=== PATIENT | male | born 1955 | race Caucasian/White ===

== ENCOUNTER 2019-10-11 13:09 | Outpatient (CLI) | payer MEDICARE, BC, SELFPAY ==
--- NOTE | ~2019-10-11 | XR_ITS ---
EXAMINATION: XR lumbar spine 2-3V DATE: 10/11/2019 13:28 INDICATION: Dorsalgia, unspecified TECHNIQUE: Anteroposterior and lateral views of the lumbar spine, and cone-down lateral view of the l umbosacral junction were obtained. COMPARISON: CT from the same date FINDINGS: There is no fracture. There are 2 mm of retrolisthesis of L3 on L4. Mild loss of interverte bral disc space height is present at L2-3 and L3-4. The vertebral body heights are maintained. Small degenerative osteophytes project from the anterior endplates of multiple vertebral bodies. There is m ild facet osteoarthritis of the lower lumbar spine. The bowel gas pattern is normal. A 4 mm calcifica tion is seen in the left pelvis. IMPRESSION: 1. Mild lumbar spondylosis without acute findings. 2. 4 mm calcification of the left pelvis which may reflect one of the left ureteral stones identified on CT. Reviewed, dictated and finalized at location A. IMPRESSION: 1. Mild lumbar spondylosis without acute findings. 2. 4 mm calcification of the left pelvis which may reflect one of the left uret eral stones identified on CT.
== END 2019-10-11 13:10 | disposition home or self-care (01) ==
LOC: CHSLAB 13:14
PROVIDERS: PCP Family Medicine; Visit Provider Family Medicine
DX: M54.9 Dorsalgia, unspecified (principal); R31.9 Hematuria, unspecified
CPT/HCPCS: 72100; 87077; 87086; 87088; 87186

== ENCOUNTER 2019-10-11 21:03 | Emergency (ER) | payer MEDICARE, BC, SELFPAY ==
--- NOTE | ~2019-10-11 | CT_ITS ---
EXAMINATION: CT abdomen pelvis wo con DATE: 10/11/2019 22:28 INDICATION: Left flank pain, nausea and vomiting TECHNIQUE: Computed tomography (CT) of the abdomen and pelvis was performed without intravenous contr ast. The dose-length product (DLP) was 216.93 mGy-cm. Automated exposure control and iterative recons truction technique were employed. COMPARISON: None FINDINGS: The lung bases are clear. The heart size is normal. The liver, spleen, pancreas, gallbladde r, and adrenal glands are normal. The right kidney is unremarkable. There are two stones measuring 4 mm in the left distal ureter which causes moderate left hydroureteronephrosis. Nonobstructing stones of the left kidney lower pole measure up to 4 mm. No pathologically enlarged abdominal or pelvic lymp h nodes are identified. There is no free intraperitoneal gas or evidence of bowel obstruction. The ap pendix is normal. There is mild lumbar spondylosis. A tiny fat-containing umbilical hernia is noted. IMPRESSION: 1. 4 mm stones in the distal left ureter causing moderate left hydroureteronephrosis. Consider KUB fo r treatment planning purposes. Lumbar spine radiographs performed earlier today do not include the ob structing stones. 2. Left nephrolithiasis. Reviewed, dictated and finalized at location A. IMPRESSION: 1. 4 mm stones in the distal left ureter causing moderate left hydroureteroneph rosis. Consider KUB for treatment planning purposes. Lumbar spine radiographs p erformed earlier today do not include the obstructing stones. 2. Left nephrolithiasis.
[2019-10-11 21:24] VITALS: BP 175/92; PULSE 61; RESP 16; TEMP 36.4; O2SAT 97
[2019-10-11] MEDS: ONDANSETRON INJ 4 MG/2 ML VIAL IV PUSH (21:35)
[2019-10-11] MEDS: KETOROLAC 30 MG/ML VIAL (*BKC) (21:35)
--- NOTE | 2019-10-11 22:31 | ED.ABDPAIN ---
HPI - Abdominal Pain General Chief Complaint: Abdominal Pain Stated Complaint: abd pain, throwing up Source: patient Mode of arrival: ambulatory Limitations: no limitations History of Present Illness HPI narrative: patient is a 64-year-old male who presents the emergency department with 1 day history of hematuria. Patient did not have any pain initially this morning however developed pain in his left lower quadrant this evening. He does not have fevers, diarrhea or bowel problems. He does have blood in his urine and feels like he has to urinate frequently although he has low volumes. He has been having emesis this evening as well. MD elicited complaint: abdominal pain Pertinent past history: none Onset (ago): hour(s) Pain Consistency: constant and colicky Location: LLQ Severity: severe Quality: stabbing Radiation: LLQ Exacerbating factors: nothing Relieving factors: nothing Associated symptoms: nausea, vomiting, dysuria and hematuria Related Data Home Medications Medication Instructions Recorded Confirmed rosuvastatin 20 mg tablet 20 mg PO DAILY 06/18/19 10/11/19 Allergies Allergy/AdvReac Type Severity Reaction Status Date / Time No Known Allergies Allergy Verified 10/11/19 11:49 Review of Systems Review of Systems: All systems reviewed & are unremarkable except as noted in HPI and below Constitutional: Constitutional: Denies as per HPI, Denies no additional constitutional complaints, Denies chills, Denies fatigue, Denies fever(s) and Denies weakness Eyes: Eyes: Denies as per HPI, Denies no additional eye complaints, Denies change in vision and Denies photophobia ENT: Denies system reviewed and no additional complaints, except as documented, Denies as per HPI, Denies dysphagia, Denies vertigo, Denies dizziness, Denies epistaxis, Denies nasal congestion and Denies sore throat Cardiovascular: Cardiovascular: Denies as per HPI, Denies no additional cardiovascular complaints, Denies chest pain, Denies rapid heart rate, Denies radiating jaw, neck or arm pain and Denies slow heart rate Respiratory: Respiratory: Denies as per HPI, Denies no additional respiratory complaints, Denies chest congestion, Denies cough, Denies dyspnea and Denies wheezing Gastrointestinal: Gastrointestinal: Reports abdominal pain, Denies bloating, Denies constipation, Denies heartburn, Denies diarrhea, Reports nausea and Reports vomiting Genitourinary: Genitourinary: Reports hematuria, Reports dysuria and Reports urinary frequency Musculoskeletal: Musculoskeletal: Reports no additional musculoskeletal complaints Neurologic: Reports system reviewed and no additional complaints, except as documented, Denies as per HPI, Denies confusion, Denies vertigo, Denies dizziness, Denies syncope, Denies headache(s), Denies focal weakness, Denies numbness and Denies weakness Psychiatric: Psychiatric: Reports no additional psychiatric complaints, Denies as per HPI, Denies anxiety, Denies depression, Denies homicidal ideation and Denies suicidal ideation PMFSH Past Medical History Medical History COPD (chronic obstructive pulmonary disease) Hyperlipidemia Hypertension CODY (obstructive sleep apnea) Surgical History Surgical History Hx of inguinal hernia surgery 2017 Family History Family History Father Acute myocardial infarction Cerebrovascular accident Mother CHF (congestive heart failure) Social History Social History Smoking status: Never smoker Alcohol intake: current Substance use: never Additional living arrangements comments: . 3 Children. Exam Const: General: alert, diaphoretic and ill appearing Nutritional Appearance: thin Orientation/consciousness: patient oriented x3 HENMT: Head:
[2019-10-11 22:39] LABS: Basophils Absolute Auto 0.01 K/mm3 (0.00-0.10); Basophils Percent Auto 0.1 % (0.0-1.0); Eosinophils Absolute Auto 0.01 K/mm3 (0.02-0.50); Eosinophils Percent Auto 0.1 % (1.0-6.0); Hematocrit 46.5 % (40.0-54.0); Hemoglobin 15.5 g/dL (14.0-18.0); Immature Granulocyte Absolute 0.03 K/mm3 (0.00-0.00); Immature Granulocyte Percent A 0.3 % (0.0-0.0); Lymphocytes Absolute Auto 0.68 K/mm3 (1.10-4.50); Lymphocytes Percent Auto 7.4 % (18.0-42.0); Mean Corpuscular HGB Conc 33.3 g/dL (32.0-36.0); Mean Corpuscular Hemoglobin 30.2 pg (27.0-31.0); Mean Corpuscular Volume 90.6 fL (78.0-102.0); Mean Platelet Volume 9.3 fl (8.7-11.0); Monocytes Absolute Auto 0.56 K/mm3 (0.10-0.90); Monocytes Percent Auto 6.1 % (2.0-11.0); Neutrophils Absolute Auto 7.9 K/mm3 (1.7-7.2); Platelet Count Result 165 K/mm3 (150-420); Red Blood Count 5.13 M/mm3 (4.70-6.10); Red Cell Distribution Width 11.9 % (11.6-14.4); White Blood Count 9.2 K/mm3 (4.8-10.8)
[2019-10-11 22:40] LABS: Add Urine Microscopic? YES; Appearance Urine Cloudy (Clear); Bilirubin Urine 1+ (Negative); Blood Urine 3+ (Negative); Color Urine Brown (Yellow); Glucose Urine UA Negative (Negative); Ketones Urine Trace (Negative); Leukocyte Esterase Ur Negative LEU/UL (Negative); Nitrate Urine Negative (Negative); Protein Urine 2+ (Negative); Specific Grav Ur 1.025 (1.010-1.020); pH Urine 5.5 (5.0-8.0)
[2019-10-11 22:47] LABS: Bacteria Urine Trace /hpf; RBC Urine >75 /hpf (0-2); Squamous Epithelial Cell Urine None seen /hpf (Few); WBC Urine 0-3 /hpf (0-3)
[2019-10-11 22:54] LABS: Alanine Aminotransferase 27 U/L (16-63); Albumin Level 4.2 g/dL (3.4-5.0); Alkaline Phosphatase 74 U/L (46-116); Anion Gap 9.9 mmol/L (7-16); Aspartate Amino Transferase 15 U/L (15-37); Bilirubin,Total 0.9 mg/dL (0.00-1.00); Blood Urea Nitrogen 22 mg/dL (7-18); Calcium 9.1 mg/dL (8.5-10.1); Carbon Dioxide 33 mmol/L (21-32); Chloride 102 mmol/L (98-108); Estimated CRCL calculation 63 ml/min; Estimated Glomerular Filt Rate > 60; Glucose 107 mg/dL (70-99); Lipase 108 U/L (73-393); Osmolality Calculated 295 mOsm/kg (285-295); Potassium 3.9 mmol/L (3.5-5.1); Sodium 141 mmol/L (136-145); Total Protein 7.4 g/dL (6.4-8.2)
[2019-10-11] MEDS: SODIUM CHLORIDE 0.9% IV 1,000 ML 999 ML IV CONT (22:58)
[2019-10-11 23:00] VITALS: BP 147/80; PULSE 70; RESP 14; O2SAT 96
[2019-10-11 23:40] VITALS: BP 162/85; PULSE 75; RESP 14; O2SAT 97
[2019-10-11] MEDS: KETOROLAC 10 MG TABLET PO (23:40)
== END 2019-10-11 23:45 | disposition home or self-care (01) ==
PROVIDERS: Emergency Provider Emergency Medicine; PCP Family Medicine
DX: N20.0 Calculus of kidney (principal); J44.9 Chronic obstructive pulmonary disease, unspecified; E78.5 Hyperlipidemia, unspecified; I10 Essential (primary) hypertension
CPT/HCPCS: 36415; 72100; 74176; 80053; 81001; 83690; 85025; 87077; 87086; 87088; 87186; 96361; 96374; 96375; 99283; 99284; A9270; J1885; J2405; J7030

== ENCOUNTER 2019-11-25 08:56 | Outpatient (RCR) | payer MEDICARE, BC, SELFPAY ==
--- NOTE | 2019-11-25 09:49 | PTOPEVAL ---
Thank you for referring Twin Humphrey to [facility].? The patient is scheduled to be seen for therapy? ____x/week for ___ weeks. Please review, sign, date and return this plan of care ALONSO. I agree with and certify that the following plan of care is medically necessary. Referring Physician Date Admitting Provider: Attending Provider: Khalif Davies DO Referring Provider: *PT Outpatient Evaluation Start: 11/25/19 09:06 Freq: Status: Active Protocol: Document 11/25/19 09:06 [facility] (Rec: 11/25/19 09:40 [facility] [id number]) Therapy Assessment Status Assessment Status Assessment Status Evaluation Outpatient Past Medical History Cardiovascular History Hx Hypercholesterolemia Yes Hx Hypertension Yes Gastrointestinal History Hx Hernia Yes: SURGICAL REPAIR Evaluation Information Problem Diagnosis scaitica Onset 09/22/19 Additional Evaluation Detail oswestry = 24% Subjective Information patient he has been having Query Text:As Reported By Patient/ pain in the R hip for about 6 Family months. he report she is able to walk and perform daily activitiesn without issues. however, if he sits or sleeps he has increased pain in the R hip. he reports small bouts of getting up and moving help relieve pain from sleeping and sitting. he reports he sleeps on his sides. he reports he has pain from the R posterior hip/buttock down the back/side of the leg to the knee/lower thigh. Prior Level of Function Comments Additional Prior Level of Function patient reports prior to 6 Comments months ago, no issues with the R hip. he reports a small injury about 8 months ago when he fell into a pile of wood. Pain Assessment Timing of Pain Assessment Timing of Pain Assessment Assessment Pain Scale Pain Scale Used Numeric (1 - 10) Self Report Pain Assessment Right Hip(s) Reported Pain Level 2 Lowest Pain Intensity 0 Greatest Pain Intensity 8 Pain Score Pain Score 2: Self Report Cervical and Lumbar ROM Lumbar ROM Lumbar Flexion Active Mid [place],Ankle Query Text:Hands to: Lumbar Extension (0-40) 20 Query Text:Active in Degrees Lumbar Lateral Flexion Right (0-40) 20 Query Text:Act
== END 2019-12-03 17:01 | disposition home or self-care (01) ==
LOC: CHSPT 08:56
PROVIDERS: PCP Family Medicine; Visit Provider Family Medicine
DX: M54.30 Sciatica, unspecified side (principal)
CPT/HCPCS: 97014; 97110; 97140; 97161; G0283

== ENCOUNTER 2020-01-28 08:38 | Outpatient (CLI) | payer MEDICARE, BC, SELFPAY ==
--- NOTE | 2020-01-28 08:46 | ECG_ITS ---
Measurements Intervals [place] Rate: 57 P: 39 DC: 157 QRS: 57 QRSD: 92 T: 59 QT: 381 QTc: 372 Interpretive Statements SINUS BRADYCARDIA INCOMPLETE RIGHT BUNDLE BRANCH BLOCK BORDERLINE ECG Electronically Signed On 01-28-2020 9:11:42 CDT by Andrew Helms D.O.
[2020-01-28 09:47] LABS: Cholesterol 171 mg/dL (0-200); HDL Direct 69 mg/dL (40-60); LDL Cholesterol Calculated 85 mg/dL (<130); Triglycerides 84 mg/dL (0-150)
== END 2020-01-28 08:39 | disposition home or self-care (01) ==
PROVIDERS: PCP Family Medicine; Visit Provider Internal Medicine Cardiovascular Disease
DX: E78.5 Hyperlipidemia, unspecified (principal); I10 Essential (primary) hypertension
CPT/HCPCS: 36415; 80061; 93005

== ENCOUNTER 2020-09-16 09:50 | Outpatient (CLI) | payer MEDICARE, BC, SELFPAY ==
--- NOTE | ~2020-09-16 | MR_ITS ---
EXAMINATION: MR brain/brain stem wo con EXAM DATE: 09/16/2020 10:47 INDICATION: Left arm hemiparesis 6-8 months. TECHNIQUE: Magnetic resonance imaging (MRI) of the brain/brain stem obtained without contrast. Sagitt al T1, axial diffusion, gradient echo (T2*), T1, T2, FLAIR sequences obtained. There is no prior st udy for comparison. FINDINGS: Minimal microangiopathy. There are no areas of restricted diffusion to suggest acute infarc tion. There is no acute hemorrhage seen on the T2*, a hemosiderin sensitive sequence. No intraparen chymal brain mass. The ventricles are normal in size. There are no extra-axial collections. Flow vo ids are seen in the cerebral arteries on the T2-weighted sequences consistent with their expected pat ency. The orbits are unremarkable. Soft tissue is unremarkable. IMPRESSION: Minimal microangiopathy. Reviewed, dictated and finalized at location A. IMPRESSION: Minimal microangiopathy.
== END 2020-09-16 09:51 | disposition home or self-care (01) ==
LOC: CHSIMG 09:53
PROVIDERS: PCP Family Medicine; Visit Provider Family Medicine
DX: R09.89 Other specified symptoms and signs involving the circulatory and respiratory systems (principal)
CPT/HCPCS: 70551

== ENCOUNTER 2020-12-11 09:17 | Outpatient (CLI) | payer MEDICARE, BC, SELFPAY ==
--- NOTE | ~2020-12-11 | XR_ITS ---
EXAMINATION: XR shoulder LT min 2V EXAM DATE: 12/11/2020 09:42 INDICATION: Pain in posterior shoulder NKI . TECHNIQUE: The following left shoulder projections obtained: frontal projection with internal rotatio n, frontal projection with external rotation, Grashey, and scapular Y view (4+ views). There is no p rior study for comparison. FINDINGS: No evidence of left shoulder rotator cuff calcific tendinosis. There is mild glenohumer al joint, mild acromioclavicular joint primary osteoarthritis. There are no acute fractures or disloc ations identified. There is no subcutaneous gas. The soft tissue is unremarkable. There are no ra diopaque foreign bodies. IMPRESSION: Mild left shoulder osteoarthritis. Reviewed, dictated and finalized at location B.
== END 2020-12-11 09:18 | disposition home or self-care (01) ==
PROVIDERS: PCP Family Medicine; Visit Provider Family Medicine
DX: M25.512 Pain in left shoulder (principal)
CPT/HCPCS: 73030

== ENCOUNTER 2020-12-30 07:14 | Outpatient (CLI) | payer MEDICARE, BC, SELFPAY ==
--- NOTE | ~2020-12-30 | MR_ITS ---
EXAMINATION: MR shoulder LT wo con DATE: 12/30/2020 08:48 INDICATION: Left shoulder pain. TECHNIQUE: Magnetic resonance imaging (MRI) of the left shoulder was performed without intravenous co ntrast. Sequences included axial PD-weighted FS FSE, coronal oblique PD-weighted FS FSE and T2-weight ed FS FSE, and sagittal oblique T2-weighted FS FSE and T1-weighted FSE. COMPARISON: Left shoulder radiographs 12/11/2020 FINDINGS: Coracoacromial arch: The acromion undersurface is curved in morphology (type II). There is severe acromioclavicular joint osteoarthritis including inferiorly directed osteophytes. There is mild subacromial/subdeltoid bursit is. Rotator cuff: There are articular sided and bursal sided partial-thickness tears of supraspinatus and infraspinatus tendons measuring 1.9 cm anterior to posterior by 2.7 cm proximal to distal by at least 60% tendon t hickness. Teres minor tendon is normal. There is mild subscapularis tendinopathy. There is no asymmet mesha fatty atrophy of the rotator cuff muscle bellies. Biceps tendon and glenoid labrum: Biceps tendon is in bicipital groove. There is mild intra-articular biceps tendinopathy. The glenoid labrum is intact. Fluid: There is no glenohumeral joint effusion. Bones/cartilage: There is cartilage surface irregularity of humeral head and glenoid. IMPRESSION: 1. Partial-thickness tears of supraspinatus and infraspinatus tendons. 2. Mild glenohumeral joint chondrosis. 3. Severe acromioclavicular joint osteoarthritis. 4. Mild subacromial/subdeltoid bursitis. 5. Mild intra-articular biceps tendinopathy. Reviewed, dictated and finalized at location A.
== END 2020-12-30 07:15 | disposition home or self-care (01) ==
LOC: CHSIMG 07:16
PROVIDERS: PCP Family Medicine; Visit Provider Family Medicine
DX: M25.512 Pain in left shoulder (principal)
CPT/HCPCS: 73221

== ENCOUNTER 2021-01-22 08:33 | Outpatient (CLI) | payer MEDICARE, SELFPAY ==
[2021-01-22 09:44] LABS: Prostate Specific Antigen 2.2 ng/mL (< OR = 4.0)
== END 2021-01-22 08:34 | disposition home or self-care (01) ==
LOC: CHSLAB 08:36
PROVIDERS: PCP Family Medicine; Visit Provider Family Medicine
DX: Z00.00 Encounter for general adult medical examination without abnormal findings (principal); Z12.5 Encounter for screening for malignant neoplasm of prostate
CPT/HCPCS: 36415; 84153; G0103

== ENCOUNTER 2021-01-29 11:00 | Outpatient (RCR) | payer MEDICARE, BC, SELFPAY ==
--- NOTE | 2021-01-29 12:03 | PTOPEVAL ---
Thank you for referring Twin Humphrey to [facility].? The patient is scheduled to be seen for therapy? ____x/week for ___ weeks. Please review, sign, date and return this plan of care ALONSO. I agree with and certify that the following plan of care is medically necessary. Referring Physician Date Admitting Provider: Attending Provider: Angel Armenta Referring Provider: RichPT Outpatient Evaluation Start: 01/29/21 10:57 Freq: Status: Active Protocol: Document 01/29/21 10:58 [facility] (Rec: 01/29/21 12:03 [facility] [id number]) Therapy Assessment Status Assessment Status Assessment Status Evaluation Outpatient Past Medical History Neurological History Hx Other Neurological Disorders Yes: left side cva vs early Parkinsons; seeking 2nd opinion Cardiovascular History Hx Hypercholesterolemia Yes Hx Hypertension Yes Respiratory History Hx Chronic Obstructive Pulmonary Disease Yes (COPD) Hx Sleep Apnea Yes Gastrointestinal History Hx Hernia Yes: SURGICAL REPAIR Genitourinary History Hx Kidney Stones Yes Musculoskeletal History Hx Musculoskeletal Disorders No Significant History Hematological History Hx Hematological Disorders No Significant History Endocrine History Hx Endocrine Disorders No Significant History HEENT History Hx HEENT Disorders No Significant History Integumentary History Hx Other Skin Disorders Yes: possible bcc Reproductive History Hx Reproductive Disorders No Significant History Psychosocial History Hx Psychiatric Disorders No Significant History Pain History History of Any Previous or Ongoing No Significant History Instance of Pain Anesthesia History Hx Post-Op Nausea/Vomiting Yes Evaluation Information Problem Diagnosis L shoulder Onset 01/16/21 Subjective Information Patient reports that he Query Text:As Reported By Patient/ started to gradually have Family shoulder pain with certain spots. He states he is unable to reach behind his back ( washing his back, tucking in his shirt), lifting/reaching overhead, and reaching forward into the fridge. Patient states that he knows his limits and does not push past them. The patient states that his goal for therapy is to get his motion back. Prior Level of Function Activity Level (Last 3 Months) Occupation
--- NOTE | 2021-02-20 09:45 | PTOPEVAL ---
Thank you for referring Twin Humphrey to [facility].? The patient is scheduled to be seen for therapy? ____x/week for ___ weeks. Please review, sign, date and return this plan of care ALONSO. I agree with and certify that the following plan of care is medically necessary. 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; seeking 2nd opinion Cardiovascular History Hx Hypercholesterolemia Yes Hx Hypertension Yes Respiratory History Hx Chronic Obstructive Pulmonary Disease Yes (COPD) Hx Sleep Apnea Yes Gastrointestinal History Hx Hernia Yes: SURGICAL REPAIR Genitourinary History Hx Kidney Stones Yes Musculoskeletal History Hx Musculoskeletal Disorders No Significant History Hematological History Hx Hematological Disorders No Significant History Endocrine History Hx Endocrine Disorders No Significant History HEENT History Hx HEENT Disorders No Significant History Integumentary History Hx Other Skin Disorders Yes: possible bcc Reproductive History Hx Reproductive Disorders No Significant History Psychosocial History Hx Psychiatric Disorders No Significant History Pain History History of Any Previous or Ongoing No Significant History Instance of Pain Anesthesia History Hx Post-Op Nausea/Vomiting Yes Evaluation Information Problem Diagnosis L shoulder Onset 01/16/21 Subjective Information patient reports he feels Query Text:As Reported By Patient/ alright this date. he reports Family some increased soreness/pain in the L shoulder and R hip from a fall over the weekend. he presents this date with reports of improved shoulder mobility and use. however, he reports reaching behind head and back are still toughest for him. he presents with a new order to evaluate patient for deficits due to parkinsons . he will be setup with a new evaluation for this diagnosis later this week. Pain Assessment [place]
--- NOTE | 2021-03-01 08:52 | PTOPEVAL ---
Thank you for referring Twin Humphrey to [facility].? The patient is scheduled to be seen for therapy? ____x/week for ___ weeks. Please review, sign, date and return this plan of care ALONSO. I agree with and certify that the following plan of care is medically necessary. 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; seeking 2nd opinion Cardiovascular History Hx Hypercholesterolemia Yes Hx Hypertension Yes Respiratory History Hx Chronic Obstructive Pulmonary Disease Yes (COPD) Hx Sleep Apnea Yes Gastrointestinal History Hx Hernia Yes: SURGICAL REPAIR Genitourinary History Hx Kidney Stones Yes Musculoskeletal History Hx Musculoskeletal Disorders No Significant History Hematological History Hx Hematological Disorders No Significant History Endocrine History Hx Endocrine Disorders No Significant History HEENT History Hx HEENT Disorders No Significant History Integumentary History Hx Other Skin Disorders Yes: possible bcc Reproductive History Hx Reproductive Disorders No Significant History Psychosocial History Hx Psychiatric Disorders No Significant History Pain History History of Any Previous or Ongoing No Significant History Instance of Pain Anesthesia History Hx Post-Op Nausea/Vomiting Yes Evaluation Information Problem Diagnosis L shoulder Onset 01/16/21 Additional Evaluation Detail quick dash = 13% functionally declined Subjective Information patient reports he feels Query Text:As Reported By Patient/ Great this date. he reports Family some pain with far reaching behind back with the L shoulder still. however, his strength and mobility are greatly increased. he reports he has not been able to move his arm this far in a long time. Pain Assessment Timing of Pain Assessment Timing of Pain Assessment Assessment Self Report Self Report Pain Level 0 Pain Score Pain Score 0: Self Report Upper Extre
== END 2021-03-01 09:43 | disposition home or self-care (01) ==
LOC: CHSPT 11:00
PROVIDERS: PCP Family Medicine
DX: M75.102 Unspecified rotator cuff tear or rupture of left shoulder, not specified as traumatic (principal)
CPT/HCPCS: 97014; 97110; 97140; 97161; G0283

== ENCOUNTER → 2021-02-12 02:34 | Outpatient (CLI) | payer MEDICARE, BC, SELFPAY ==
[2021-02-12 16:20] LABS: SARS-CoV-2 RNA PCR Negative
== END ==
PROVIDERS: PCP Family Medicine; Visit Provider Surgery
DX: Z01.812 Encounter for preprocedural laboratory examination (principal); Z20.822 Contact with and (suspected) exposure to COVID-19
CPT/HCPCS: C9803; U0003; U0005

== ENCOUNTER 2021-02-15 01:04 | Day surgery (SDC) | payer MEDICARE, BC, SELFPAY ==
[2021-01-29 09:51] VITALS: BMI 25.2
[2021-02-15 09:03] VITALS: BP 160/79; PULSE 63; RESP 12; TEMP 35.8; O2SAT 99
[2021-02-15 09:04] VITALS: BMI 24.5
[2021-02-15] MEDS: LACTATED RINGERS 1,000 ML 150 ML IV CONT (09:16)
--- NOTE | 2021-02-15 09:31 | WPDANESEPPF ---
Anes - Initial Pre Proc Eval Procedure: Operation Date: 02/15/21 09:30 Proposed Procedures p Screening Colonoscopy - Dany Kyle DO Date/Time: 02/15/21 09:31 Surgeon: Dany Kyle DO Pre Op Diagnosis: neoplasm screening Patient Data Age: 65 Gender: M Height: 1.85 m Weight: 84.2 kg Last Vital Signs Temp 35.8 C L 02/15/21 09:03 Pulse 63 02/15/21 09:03 Resp 12 02/15/21 09:03 BP 160/79 H 02/15/21 09:03 Pulse Ox 99 02/15/21 09:03 Allergies Allergy/AdvReac Type Severity Reaction Status Date / Time No Known Allergies Allergy Verified 02/15/21 09:02 Home Medications Medication Instructions Recorded Confirmed Type triamcinolone acetonide 0.1 % 1 applic TOPICAL TID #15 gm 01/12/20 02/15/21 Rx topical cream aspirin 81 mg tablet,delayed 81 mg PO DAILY 07/31/20 02/15/21 History release icosapent ethyl 1 gram capsule 2 g PO BID 90 Days #360 cap 09/25/20 02/15/21 Rx carbidopa 25 mg-levodopa 100 mg 1 tablet PO TID 01/22/21 02/15/21 History tablet lisinopril 30 mg PO DAILY 01/29/21 02/15/21 History Patient hx anesthesia problems: none Family hx anesthesia problems: none Results Review: All pre-operative results and documents have been reviewed as part of the pre-operative evaluation. 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 3 Children. Spiritual care concerns: No Anes - Eval Final PreProcedure Day of Procedure 02/15/21 09:31 Patient weight: normal Heart: regular rate and rhythm Lungs: clear to auscultation and normal air movement Airway: Mallampati scale class II Neurological: alert and oriented Last oral intake: >/= 8 hours ASA classification: III Emergent: no Anesthetic plan: proceed Anesthesia type and monitoring: general GIVS Results Review: All pre-operative results and documents have been reviewed as part of the pre-operative evaluation. Informed Consent: The patient's anesthetic plan and its attendant risks and benefits were discussed with the patient/family/POA. Questions were solicited and answers provided to the satisfaction of the patient/family/POA.
--- NOTE | 2021-02-15 10:11 | PM.IMHP ---
H&P: HPI History of Present Illness Date/Time: 02/15/21 10:11 Chief Complaint: Family history colon cancer Narrative: this is a 65-year-old man who presents for colonoscopy. His last colonoscopy was 15 years ago. In the last few years he found out that his sister had colon cancer. She was diagnosed around the age of 58. He denies any hematochezia or melena. Denies any change in bowel habits. Review of Systems Review of Systems: All systems reviewed & are unremarkable except as noted in HPI and below Constitutional: Constitutional: Denies chills, Denies fever(s), Denies headache(s) and Denies weight loss Eyes: Eyes: Denies change in vision ENT: Denies dizziness, Denies headache(s), Denies neck mass and Denies throat swelling Cardiovascular: Cardiovascular: Denies chest pain, Denies lightheadedness and Denies dyspnea Respiratory: Respiratory: Denies cough, Denies dyspnea and Denies wheezing Gastrointestinal: Gastrointestinal: Denies abdominal pain, Denies change in bowel habits, Denies nausea and Denies vomiting Genitourinary: Genitourinary: Denies hematuria and Denies dysuria Musculoskeletal: Musculoskeletal: Reports as per HPI Integumentary/Breasts: Skin/Breast: Reports as per HPI Neurologic: Denies dizziness and Denies headache(s) Allergic/Immunologic: Allergic/Immunologic: Denies throat swelling and Denies wheezing [facility] Past Medical History Medical History (Updated 02/15/21 @ 10:12 by Dany Kyle DO) Ataxia of left upper extremity COPD (chronic obstructive pulmonary disease) Hyperlipidemia Hypertension Keratoacanthoma CODY (obstructive sleep apnea) Suspected cerebrovascular accident (CVA) Varicose veins of bilateral lower extremities with pain Surgical History Surgical History Hx of inguinal hernia surgery 2017 Family History Family History Father Acute myocardial infarction Cerebrovascular accident Mother CHF (congestive heart failure) Social History Social History Smoking status: Never smoker Alcohol intake: current Alcohol use details: 5-6 beers once or twice per month Substance use: never Substance use type: does not use Living arrangements: alone Additional living arrangements comments: . 3 Children. Spiritual care concerns: No Meds Home Medications and Allergies Home Medications Medication Instructions Recorded Confirmed Type triamcinolone acetonide 0.1 % 1 applic TOPICAL TID #15 gm 01/12/20 02/15/21 Rx topical cream aspirin 81 mg tablet,delayed 81 mg PO DAILY 07/31/20 02/15/21 History release icosapent ethyl 1 gram capsule 2 g PO BID 90 Days #360 cap 09/25/20 02/15/21 Rx carbidopa 25 mg-levodopa 100 mg 1 tablet PO TID 01/22/21 02/15/21 History tablet lisinopril 30 mg PO DAILY 01/29/21 02/15/21 History Allergies Allergy/AdvReac Type Severity Reaction Status Date / Time No Known Allergies Allergy Verified 02/15/21 09:02 Vital Signs Vital Signs - 24 hr 02/15/21 09:03 Temperature 35.8 C L Pulse Rate 63 Respiratory Rate 12 Blood Pressure 160/79 H Pulse Oximetry 99 Exam Const: General: no acute distress and alert Orientation/consciousness: patient oriented x3 HENMT: Head: normocephalic and atraumatic Ears: hearing grossly normal bilaterally General nose exam: Normal nares present Mouth: Yes Normal oral and palatal mucosa present Eyes: Periorbital: periorbital findings normal Sclera: sclerae normal EOM: EOMs intact bilaterally Neck: Neck: normal visual inspection, no lymphadenopathy and trachea midline Chest: Chest palpation & inspection: normal inspection of the chest Resp: Effort & Inspection: normal respiratory effort Auscultation: clear to auscultation bilaterally Cardio: Jugular venous distension: no JVD Rate: regular rate Rhyt
[2021-02-15 10:50] VITALS: BP 143/91; PULSE 83; RESP 21; O2SAT 97
[2021-02-15 11:00] VITALS: BP 144/89; PULSE 76; RESP 19; O2SAT 98
[2021-02-15 11:10] VITALS: BP 150/94; PULSE 74; RESP 16; O2SAT 98
== END 2021-02-15 11:18 | disposition home or self-care (01) ==
PROVIDERS: PCP Family Medicine; Visit Provider Surgery
PROC: 0DJD8ZZ Inspection of Lower Intestinal Tract, Via Natural or Artificial Opening Endoscopic (ICD-10-PCS; CPT 45378; principal; 2021-02-15 09:30)
DX: Z12.11 Encounter for screening for malignant neoplasm of colon (principal); K57.30 Diverticulosis of large intestine without perforation or abscess without bleeding; Z80.0 Family history of malignant neoplasm of digestive organs; I10 Essential (primary) hypertension; E78.5 Hyperlipidemia, unspecified; J44.9 Chronic obstructive pulmonary disease, unspecified; G47.33 Obstructive sleep apnea (adult) (pediatric); Z79.82 Long term (current) use of aspirin
CPT/HCPCS: G0105; J2704; J7120

== ENCOUNTER 2021-02-23 09:55 | Outpatient (RCR) | payer MEDICARE, BC, SELFPAY ==
--- NOTE | 2021-02-23 10:55 | PTOPEVAL ---
Thank you for referring Twin Humphrey to [facility].? The patient is scheduled to be seen for therapy? ____x/week for ___ weeks. Please review, sign, date and return this plan of care ALONSO. I agree with and certify that the following plan of care is medically necessary. 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; seeking 2nd opinion Cardiovascular History Hx Hypercholesterolemia Yes Hx Hypertension Yes Respiratory History Hx Chronic Obstructive Pulmonary Disease Yes (COPD) Hx Sleep Apnea Yes Gastrointestinal History Hx Hernia Yes: SURGICAL REPAIR Genitourinary History Hx Kidney Stones Yes Musculoskeletal History Hx Musculoskeletal Disorders No Significant History Hematological History Hx Hematological Disorders No Significant History Endocrine History Hx Endocrine Disorders No Significant History HEENT History Hx HEENT Disorders No Significant History Integumentary History Hx Other Skin Disorders Yes: possible bcc Reproductive History Hx Reproductive Disorders No Significant History Psychosocial History Hx Psychiatric Disorders No Significant History Pain History History of Any Previous or Ongoing No Significant History Instance of Pain Anesthesia History Hx Post-Op Nausea/Vomiting Yes Evaluation Information Problem Diagnosis parkinsons disease Onset 02/13/21 Subjective Information patient reports he has seen Query Text:As Reported By Patient/ his PCP who thinks he may have Family had a TIA. however, he reports he has just been to a neurologist who believes he has early onset parkinsons. he reports he is awaiting a 3rd opinion to determine exact diagnosis. he reports he has difficulty with performing more fine motor (nuts and bolts) with the L hand. he reports he is R handed. he reports the L shoulder was injured but is
--- NOTE | 2021-02-23 10:56 | PCPTNOTE ---
No Care Plan initiated due to patient being discharged today.
== END 2021-02-23 11:35 | disposition home or self-care (01) ==
LOC: CHSPT 09:55
PROVIDERS: PCP Family Medicine
DX: G20 Parkinson's disease (principal)
CPT/HCPCS: 97110; 97161

== ENCOUNTER 2021-03-01 07:55 | Outpatient (RCR) | payer MEDICARE, BC, SELFPAY ==
--- NOTE | 2021-03-01 12:03 | OTOPEVAL ---
Thank you for referring Twin Humphrey to [facility].? The patient is scheduled to be seen for therapy? ____x/week for ___ weeks. Please review, sign, date and return this plan of care ALONSO. I agree with and certify that the following plan of care is medically necessary. 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; seeking 2nd opinion Cardiovascular History Hx Hypercholesterolemia Yes Hx Hypertension Yes Respiratory History Hx Chronic Obstructive Pulmonary Disease Yes (COPD) Hx Sleep Apnea Yes Gastrointestinal History Hx Hernia Yes: SURGICAL REPAIR Genitourinary History Hx Kidney Stones Yes Musculoskeletal History Hx Musculoskeletal Disorders No Significant History Hematological History Hx Hematological Disorders No Significant History Endocrine History Hx Endocrine Disorders No Significant History HEENT History Hx HEENT Disorders No Significant History Integumentary History Hx Other Skin Disorders Yes: possible bcc Reproductive History Hx Reproductive Disorders No Significant History Psychosocial History Hx Psychiatric Disorders No Significant History Pain History History of Any Previous or Ongoing No Significant History Instance of Pain Anesthesia History Hx Post-Op Nausea/Vomiting Yes Evaluation Information Problem Diagnosis decreased L fine motor coordination Onset 02/23/21 Cause Parkinson's Subjective Information Patient reports that he has Query Text:As Reported By Patient/ noticed that his dexterity in Family his L hand has declined over the last 8- 12 months. Patient also reports that his started to notice him positioning his L UE in a more flexed/guarded position. Patient does not feel his decrease in L coordination has decreased anymore since the initial onset. Patient states that he is able to perform
--- NOTE | 2021-03-19 09:28 | OTOPEVAL ---
Thank you for referring Twin Humphrey to [facility].? The patient is scheduled to be seen for therapy? ____x/week for ___ weeks. Please review, sign, date and return this plan of care ALONSO. I agree with and certify that the following plan of care is medically necessary. 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; seeking 2nd opinion Cardiovascular History Hx Hypercholesterolemia Yes Hx Hypertension Yes Respiratory History Hx Chronic Obstructive Pulmonary Disease Yes (COPD) Hx Sleep Apnea Yes Gastrointestinal History Hx Hernia Yes: SURGICAL REPAIR Genitourinary History Hx Kidney Stones Yes Musculoskeletal History Hx Musculoskeletal Disorders No Significant History Hematological History Hx Hematological Disorders No Significant History Endocrine History Hx Endocrine Disorders No Significant History HEENT History Hx HEENT Disorders No Significant History Integumentary History Hx Other Skin Disorders Yes: possible bcc Reproductive History Hx Reproductive Disorders No Significant History Psychosocial History Hx Psychiatric Disorders No Significant History Pain History History of Any Previous or Ongoing No Significant History Instance of Pain Anesthesia History Hx Post-Op Nausea/Vomiting Yes Evaluation Information Problem Subjective Information Patient arrives to OT and Query Text:As Reported By Patient/ reports that he continues to Family perform home programming. Patient states that he is able to do everything that he needs to and is confident in home programming. Pain Assessment Timing of Pain Assessment Timing of Pain Assessment Assessment Self Report Self Report Pain Level 0 Pain Score Pain Score 0: Self Report 9-Hole Peg Hand Test Hand Left Hand Dominance Right Scoring Time (seconds) 24 Interpretation Within Normal Range Coordination Activity - Upper Extremity Coordination Activity Left Fine Motor Coordination Activity Patient uses L thumb and index Query Text:Activity, Time, Sets, Reps* finger to screw and unscrew
== END 2021-03-19 09:40 | disposition home or self-care (01) ==
LOC: CHSOT 07:55
DX: G20 Parkinson's disease (principal)
CPT/HCPCS: 97165; 97530

== ENCOUNTER 2021-06-11 11:20 | Outpatient (CLI) | payer MEDICARE, SELFPAY ==
[2021-06-11 12:31] LABS: Cholesterol 250 mg/dL (0-200); HDL Direct 58 mg/dL (40-60); LDL Cholesterol Calculated 174 mg/dL (<130); Triglycerides 89 mg/dL (0-150)
== END 2021-06-11 11:21 | disposition home or self-care (01) ==
LOC: CHSLAB 11:22
PROVIDERS: PCP Family Medicine; Visit Provider Family Medicine
DX: E78.5 Hyperlipidemia, unspecified (principal)
CPT/HCPCS: 36415; 80061

== ENCOUNTER 2021-09-21 10:22 | Outpatient (CLI) | payer MEDICARE, SELFPAY ==
[2021-09-21 11:08] LABS: Alanine Aminotransferase 17 U/L (16-63); Albumin Level 3.9 g/dL (3.4-5.0); Alkaline Phosphatase 85 U/L (46-116); Anion Gap 6 mmol/L (8-16); Aspartate Amino Transferase 13 U/L (15-37); Bilirubin,Total 1.4 mg/dL (0.00-1.00); Blood Urea Nitrogen 18 mg/dL (7-18); Calcium 8.9 mg/dL (8.5-10.1); Carbon Dioxide 28 mmol/L (21-32); Chloride 106 mmol/L (98-108); Cholesterol 183 mg/dL (0-200); Estimated Glomerular Filt Rate > 60; Glucose 94 mg/dL (70-99); HDL Direct 59 mg/dL (40-60); LDL Cholesterol Calculated 103 mg/dL (<130); Osmolality Calculated 291 mOsm/kg (285-295); Potassium 4.3 mmol/L (3.5-5.1); Sodium 140 mmol/L (136-145); Triglycerides 104 mg/dL (0-150)
== END 2021-09-21 10:23 | disposition home or self-care (01) ==
LOC: CHSLAB 10:25
PROVIDERS: PCP Family Medicine; Visit Provider Internal Medicine Cardiovascular Disease
DX: E78.5 Hyperlipidemia, unspecified (principal)
CPT/HCPCS: 36415; 80053; 80061

== ENCOUNTER 2022-10-04 08:04 | Outpatient (CLI) | payer MEDICARE, SELFPAY ==
[2022-10-04 09:18] LABS: Cholesterol 201 mg/dL (0-200); HDL Direct 66 mg/dL (40-60); LDL Cholesterol Calculated 117 mg/dL (<130); Triglycerides 92 mg/dL (0-150)
== END 2022-10-04 08:05 | disposition home or self-care (01) ==
LOC: CHSLAB 08:06
PROVIDERS: Internal Medicine Cardiovascular Disease; PCP Family Medicine; Visit Provider Nurse Practitioner Family
DX: E78.5 Hyperlipidemia, unspecified (principal)
CPT/HCPCS: 36415; 80061

== ENCOUNTER 2022-10-30 08:18 | Outpatient (CLI) | payer MEDICARE, SELFPAY ==
[2022-10-30 09:50] LABS: Prostate Specific Antigen 2.6 ng/mL (< OR = 4.0)
== END 2022-10-30 08:19 | disposition home or self-care (01) ==
LOC: CHSLAB 08:21
PROVIDERS: PCP Family Medicine; Visit Provider Urology
DX: R97.20 Elevated prostate specific antigen [PSA] (principal)
CPT/HCPCS: 36415; 84153

== ENCOUNTER 2023-11-19 07:54 | Outpatient (CLI) | payer MEDICARE, BC, SELFPAY ==
[2023-11-19 08:05] LABS: Basophils Absolute Auto 0.02 K/mm3 (0.00-0.10); Basophils Percent Auto 0.5 % (0.0-1.0); Eosinophils Absolute Auto 0.06 K/mm3 (0.02-0.50); Eosinophils Percent Auto 1.5 % (1.0-6.0); Hematocrit 48.6 % (37.0-46.0); Hemoglobin 16.5 g/dL (12.4-15.3); Immature Granulocyte Absolute 0.01 K/mm3 (0.00-0.00); Immature Granulocyte Percent A 0.2 % (0.0-0.0); Lymphocytes Absolute Auto 1.41 K/mm3 (1.10-4.50); Lymphocytes Percent Auto 34.4 % (18.0-42.0); Mean Corpuscular Hemoglobin 30.4 pg (27.0-31.0); Mean Corpuscular Volume 89.7 fL (78.0-102.0); Mean Platelet Volume 9.4 fl (8.7-11.0); Monocytes Absolute Auto 0.41 K/mm3 (0.10-0.90); Neutrophils Absolute Auto 2.19 K/mm3 (1.70-7.20); Neutrophils Percent Auto 53.4 % (50.0-70.0); Platelet Count Result 182 K/mm3 (150-420); Red Blood Count 5.42 M/mm3 (4.70-6.10); Red Cell Distribution Width 11.9 % (11.6-14.4); White Blood Count 4.1 K/mm3 (4.8-10.8)
[2023-11-19 09:05] LABS: Alanine Aminotransferase 21 U/L (16-63); Albumin Level 4.2 g/dL (3.4-5.0); Alkaline Phosphatase 96 U/L (46-116); Aspartate Amino Transferase 12 U/L (15-37); Bilirubin,Total 1.3 mg/dL (0.00-1.00); Blood Urea Nitrogen 16 mg/dL (7-18); Chloride 104 mmol/L (98-108); Cholesterol 191 mg/dL (0-200); Estimated Glomerular Filt Rate > 60; Glucose 88 mg/dL (70-99); HDL Direct 60 mg/dL (40-60); LDL Cholesterol Calculated 112 mg/dL (<130); Magnesium 2.1 mg/dL (1.8-2.4); Osmolality Calculated 298 mOsm/kg (285-295); Potassium 4.3 mmol/L (3.5-5.1); Prostate Specific Antigen 2.7 ng/mL (< OR = 4.0); Sodium 144 mmol/L (136-145); Total Protein 7.2 g/dL (6.4-8.2); Triglycerides 93 mg/dL (0-150); Vitamin B12 323 pg/mL (193-986)
[2023-11-19 09:11] LABS: Thyroid Stimulating Hormone Reflex 1.69 u/IU/mL (0.36-3.74)
[2023-11-19 09:14] LABS: Anion Gap 10 mmol/L (4-12); Carbon Dioxide 30 mmol/L (21-32)
== END 2023-11-19 07:55 | disposition home or self-care (01) ==
LOC: CHSLAB 07:56
PROVIDERS: PCP Family Medicine; Visit Provider Family Medicine
DX: E53.8 Deficiency of other specified B group vitamins (principal); R35.1 Nocturia; R97.20 Elevated prostate specific antigen [PSA]; E78.5 Hyperlipidemia, unspecified; G47.33 Obstructive sleep apnea (adult) (pediatric); R53.83 Other fatigue; E03.9 Hypothyroidism, unspecified; I10 Essential (primary) hypertension; Z12.5 Encounter for screening for malignant neoplasm of prostate
CPT/HCPCS: 36415; 80053; 80061; 82607; 82746; 83735; 84153; 84443; 85025; G0103

== ENCOUNTER 2024-01-14 09:34 | Outpatient (CLI) | payer MEDICARE, BC, SELFPAY ==
--- NOTE | ~2024-01-14 | XR_ITS ---
[id number] Ordering provider: Khalif Davies DO History: . Torticollis, POPPING IN NECK S/P DIVING INTO POOL 38YR AGO . Comparison: None. FINDINGS: VERTEBRAL BODIES: Normal height and alignment. No visible fracture or subluxation. The dens is intact . DISK SPACES: Narrowing of the disc C3-C4, C4-C5, C5-C6. Multilevel facet joint disease. Multilevel un covertebral joint osteoarthritic changes. PARASPINOUS SOFT TISSUES: No prevertebral soft tissue swelling. IMPRESSION: No acute osseous abnormality cervical spine. Multilevel degenerative disc disease. Reviewed, dictated and finalized at location A.
[2024-01-14 10:00] LABS: Add Urine Microscopic? YES; Appearance Urine Clear (Clear); Bilirubin Urine Negative (Negative); Blood Urine 1+ (Negative); Color Urine Light Yellow (Yellow); Glucose Urine UA Negative (Negative); Ketones Urine Negative (Negative); Leukocyte Esterase Ur Negative (Negative); Nitrate Urine Negative (Negative); Protein Urine Negative (Negative); Specific Grav Ur 1.025 (1.010-1.020); Urobilinogen Urine 0.2 mg/dL (0.2-1.0); pH Urine 5.5 (5.0-8.0)
[2024-01-14 10:04] LABS: Bacteria Urine Trace /hpf; Mucus Urine Moderate /lpf; Squamous Epithelial Cell Urine Rare /hpf (Few); WBC Urine None seen /hpf (0-3)
[2024-01-14 10:59] LABS: Prostate Specific Antigen 2.8 ng/mL (< OR = 4.0)
== END 2024-01-14 09:35 | disposition home or self-care (01) ==
PROVIDERS: PCP Family Medicine; Visit Provider Family Medicine
DX: R35.1 Nocturia (principal); R35.0 Frequency of micturition; M43.6 Torticollis; Z12.5 Encounter for screening for malignant neoplasm of prostate; M50.322 Other cervical disc degeneration at C5-C6 level
CPT/HCPCS: 36415; 72040; 81001; 84153; G0103

== ENCOUNTER 2024-05-12 07:56 | Outpatient (CLI) | payer MEDICARE, BC, SELFPAY ==
--- OUTSIDE RECORDS SUMMARY | 2024-05-12 08:02 | XMS_ITS | Encounter Summary ---
Author Organization [facility] Address [address] [place] [address] Phone Care Team Providers Care Test Skein Winder Name Role Phone Khlaif Davies MD Primary Care Provider [phone] Nadeem Rodriguez MD Unavailable [phone] Reason for Visit * Reason Comments Medication Refill Encounter Details Date Type Department Care Team (Late st Contact Info) Description 04/16/2021 [facility] [address] [place] [phone] Nadeem Rodriguez MD [address] [place] [address] Medication Refill Social History Tobacco Use Types Packs/Day Years Used Date Smoking Tobacco: Never Smokeless Tobacco: Never Alcohol Use Standard Drinks/Week Comments Yes 0 (1 standard drink = 0.6 oz pur e alcohol) Sex and Gender Information Value Date Recorded Sex Assigned at Not on file Legal Sex Male 10:18 AM CDT Gender Identity Not on file Sexual Orientation Not on file documented as of this encounter Plan of Treatment Not on file documented as of this encounter Visit Diagnoses Not on filedocumented in this encounter Care Teams Test Skein Winder Relationship Specialty Start Date End Date Khalif Davies MD [address] [place] [address] PCP - General Family Medicine 12/27/20 Nadeem Rodriguez MD [address] [place] [address] Consulting Physician Neurology 02/05/22 documented as of this encounter
--- OUTSIDE RECORDS SUMMARY | 2024-05-12 08:02 | XMS_ITS | Encounter Summary ---
Author Organization [facility] Address [address] [place] [address]. [place], [place] [address] [place] [address] Care Team Providers Care Field Research Assistant Name Role Phone Juan Diego Alston MD, Emerito F MD Primary Care Provider Lito Ventura MD Primary Care Provider [phone] Encounter Details Date Type Department Care Team (Late st Contact Info) Description 02/27/2017 Abstract [facility] [address] [place] [phone] Juan Diego Alston MD Social History Tobacco Use Types Packs/Day Years Used Date Smoking Tobacco: Never Alcohol Use Standard Drinks/Week Comments No 0 (1 standard drink = 0.6 oz pur e alcohol) Sex and Gender Information Value Date Recorded Sex Assigned at Not on file Legal Sex Male 1:42 AM CDT Gender Identity Not on file Sexual Orientation Not on file Occupation Industry Job Start Date Job End Date retired Not on file Not on file Not on file documented as of this encounter Plan of Treatment Not on file documented as of this encounter Procedures Procedure Name Priority Date/Time Associated Diagnosis Comments LIPID PANEL Routine 02/27/2017 documented in this encounter Results * LIPID PANEL (02/27/2017) CHOLESTEROL 157 HDL 58 TRIGLYCERIDES 122 CHOL/HDL RATIO 2.7 LDL (CALCULATED) 75 GPT/ALT 31 02/27/2017 us Doc [facility] Abstract LABORATORY Final Result documented in this encounter Visit Diagnoses Not on filedocumented in this encounter Care Teams Field Research Assistant Relationship Specialty Start Date End Date Mariana Ferrera MD PCP - General SURGERY 02/26/17 07/19/18 Lito Carbajal MD [address] [place] [address] PCP - General FAMILY PRACTICE 07/20/18 Juan Diego Alston MD [employer] [employer] Repairer CARDIOVASCULAR DISEASE 02/24/17 documented as of this encounter
--- OUTSIDE RECORDS SUMMARY | 2024-05-12 08:02 | XMS_ITS | Clinical Summary ---
Author Organization [facility] Address [address] [place] [address] Phone Care Team Providers Care Music Theory Teacher Name Role Phone Khalif Davies MD Primary Care Provider Nadeem Rodriguez MD Unavailable [phone] Allergies Active Allergy Reactions Criticality Noted Date Comments Acetaminophen Other (see Comments) 08/08/2022 contipation Medications aspirin EC 81 MG Tablet Delayed Response Take 81 mg by mouth daily. Active Lisinopril 30 MG Tablet Take 30 mg by mouth daily. Active simvastatin (ZOCOR) 20 MG Tablet Take 20 mg by mouth every evening. Active Multiple Vitamin (MULTIVITAMIN PO) Take by mouth. Active carbidopa-levodopa (SINEMET) 25-100 MG TabletIndications:P arkinson's disease without dyskinesia or fluctuating manifestations (HCC) Take 2 Tablets by mouth 3 times daily. 1/2 hour before eating 270 Tablet 1 4 Active Active Problems Problem Noted Date Diagnosed Date Parkinson's disease 02/05/2022 Family History Medical History Relation Name Comments Heart Attack Father Congestive Heart Failure Mother Relation Name Status Comments Father Mother Social History Tobacco Use Types Packs/Day Years Used Date Smoking Tobacco: Never Smokeless Tobacco: Never Tobacco Cessation:Counseling Given: Not Answered Alcohol Use Standard Drinks/Week Comments Yes 0 (1 standard drink = 0.6 oz pur e alcohol) Sex and Gender Information Value Date Recorded Sex Assigned at Not on file Legal Sex Male 10:18 AM CDT Gender Identity Not on file Sexual Orientation Not on file Last Filed Vital Signs Vital Sign Reading Time Taken Comments Blood Pressure 140/78 02/06/2023 9:53 AM CDT Pulse 74 02/06/2023 9:53 AM CDT Temperature 36.3 ??C (97.3 ??F) 02/06/2023 9:53 AM CD T Respiratory Rate 20 02/06/2023 9:53 AM CDT Oxygen Saturation 96% 02/06/2023 9:53 AM CDT Inhaled Oxygen Concentration - - Weight 89.4 kg (197 lb) 02/06/2023 9:53 AM CDT Height 185.4 cm (6' 1 ) 02/06/2023 9:53 AM CDT Body Mass Index 25.99 02/06/2023 9:53 AM CDT Plan of Treatment Health Maintenance Due Date Last Done Comments Hepatitis C Virus (HCV) Screening 1955 TdaP Immunization 1955 Colonoscopy 07/22/2000 Colorectal Cancer Screening 07/22/2000 Cologuard 07/22/2005 Immunochemical Fecal Occult Blood 07/22/2005 Pneumococcal Immunization (5 0+ years) (1 of 1 - PCV) 07/22/2005 Zoster Immunization (1 of 2) 07/22/2005 PSA Discussion 07/22/2010 Influenza Immunization (#1) 2023 SARS-COV-2 Immunization ( - 2023- season) 2023 Respiratory Syncytial Virus (RSV) Immunization (Adult) (1 - 1-dose 75+ series) 07/22/2030 Hepatitis B Immunization Aged Out No longer eligible based on patient's age to complete this topic Meningococcal Immunization (ACWY) Aged Out No longer eligible based on patient's age to complete this topic Rotavirus Immunization Aged Out No lo nger eligible based on patient's age to complete this topic Insurance MEDICARE [facility] [[email or web address]] Care Teams Music Theory Teacher Relationship Specialty Start Date End Date Khalif Davies MD [address] [place] [address] PCP - General Family Medicine 12/27/20 Nadeem Rodriguez MD [address] [place] [address] Consulting Physician Neurology 02/05/22
--- OUTSIDE RECORDS SUMMARY | 2024-05-12 08:02 | XMS_ITS | Encounter Summary ---
Author Organization [facility] Address [address] [place] [address]. [place], [place] [address] [place] [address] Care Team Providers Care Salad Maker Name Role Phone Juan Diego Alston MD, Emerito F MD Primary Care Provider Lito Ventura MD Primary Care Provider [phone] Encounter Details Date Type Department Care Team (Late st Contact Info) Description 07/15/2018 [facility] [address] [phone] Abstract, Doc [facility] Social History Tobacco Use Types Packs/Day Years [...] on filedocumented in this encounter Care Teams Salad Maker Relationship Specialty Start Date End Date Mariana Ferrera MD PCP - General SURGERY 02/26/17 07/19/18 Lito Carbajal MD [address] [place] [address] PCP - General FAMILY PRACTICE 07/20/18 Juan Diego Alston MD [place] Building Inspection Engineer CARDIOVASCULAR DISEASE 02/24/17 documented as of this encounter
--- OUTSIDE RECORDS SUMMARY | 2024-05-12 08:02 | XMS_ITS | Clinical Summary ---
Author Organization [facility] Address [address] [place] [address]. [place], [place] [address] [place] [address] Care Team Providers Care Video Operator Name Role Phone Juan Diego Alston MD, Joshua D MD Primary Care Provider [phone] Allergies No known active allergies Medications rosuvastatin (CRESTOR) 20 MG tablet Take 1 tablet by mouth daily. 07/17/2015 Active lisinopril 30 MG tablet Take 1 tablet by mouth daily. 08/25/2015 Active multivitamin tablet Take 1 tablet by mouth daily. 07/17/2015 Active Active Problems Problem Noted Date Diagnosed Date HTN (hypertension) HLD (hyperlipidemia) COPD (chronic obstructive pu lmonary disease) ([facility]) Sleep apnea Family History Medical History Relation Comments [place] Father Relation Status Comments Father Alive Social History Tobacco Use Types Packs/Day Years [...] file Not on file Not on file Last Filed Vital Signs Vital Sign Reading Time Taken Comments Blood Pressure 128/76 07/17/2018 2:01 PM CDT Pulse 64 07/17/2018 2:01 PM CDT Temperature - - Respiratory Rate 16 07/17/2018 2:01 PM CDT Oxygen Saturation 97% 07/17/2018 2:01 PM CDT Inhaled Oxygen Concentration - - Weight 90.7 kg (200 lb) 07/17/2018 2:01 PM CDT Height 182.9 cm (6') 07/17/2018 2:01 PM CDT Body Mass Index 27.12 07/17/2018 2:01 PM CDT Plan of Treatment Health Maintenance Due Date Last Done Comments Colorectal Cancer Screening Colonoscopy (10 Years) 1955 Pneumococcal Vaccine: 65+ Ye ars (1 of 2 - PCV) 07/22/1961 1955 Hepatitis C 07/22/1973 DTaP, Tdap and Td Vaccines ( 1 - Tdap) 07/22/1974 Zoster Vaccines (1 of 2) 07/22/2005 RSV Immunization or 60+ Years (1 - Risk 60-74 years 1-dose series) 2015 COVID-19 Vaccine (2023-2 5 season) 2023 Influenza Adult (#1) 2024 1955 Meningococcal B Vaccine Aged Out No l onger eligible based on patient's age to complete this topic Meningococcal Vaccine Aged Out No tc courtney eligible based on patient's age to complete this topic RSV Immunizations Under 20 Months Aged Out No longer eligible based on patient's age to complete this topic Insurance [facility] Care Teams Video Operator Relationship Specialty Start Date End Date Lito Carbajal MD [address] [place] [address] PCP - General FAMILY PRACTICE 07/20/18 Juan Diego Alston MD [employer] Worker CARDIOVASCULAR DISEASE 02/24/17
--- OUTSIDE RECORDS SUMMARY | 2024-05-12 08:02 | XMS_ITS | CONTINUITY OF CARE DOCUMENT ---
Author Name alan phillips Address Unknown Organization [facility] Address [address] [place] [address] Phone [phone] Care Team Providers Care Ampoule Filler Name Role Phone James Arauz MD Unavailable [phone] LYNN SHEN MD Unavailable LYNN SHEN MD Unavailable PROBLEMS Condition Status Date Provider Notes HYPERTENSION active James Arauz MD HYPERLIPIDEMIA active James Arauz MD ?Diabetes mellitus completed - Finesse Arauz MD ENCOUNTERS Date Type Provider Location Encounter Diag nosis - In-person encounter Office Visit [facility] ?Diabetes mellitus - In-person encounter Office Visit [facility] - In-person encounter Office Visit James Arauz MD [place] [facility] HYPERTENSIONHYPERLIPIDEMIA VITAL SIGNS Date Observation Value Provider blood pressure, diastolic 82 mm[Hg] Us milagros Arauz MD blood pressure, systolic 132 mm[Hg] Sathya Arauz MD pulse rate 62 /min James Arauz MD oxygen saturation, oximetry 98 % James Arauz MD respiratory rate E&M 16 /min James ritchie MD Body Mass Index (Ratio) 26.85 kg/m2 Finesse Arauz MD weight E&M 198 [lb_av] James Arauz MD Body Mass Index (Ratio) 27.80 kg/m2 Finesse Arauz MD blood pressure, diastolic 70 mm[Hg] Us milagros Arauz MD blood pressure, systolic 124 mm[Hg] Sathya Arauz MD pulse rate 66 /min James Arauz MD oxygen saturation, oximetry 97 % James Arauz MD respiratory rate E&M 16 /min James ritchie MD weight E&M 205 [lb_av] James Arauz MD blood pressure, diastolic, left arm 78 mm [Hg] James Arauz MD blood pressure, systolic, left arm 120 mm [Hg] James Aaruz MD blood pressure, diastolic, right arm 74 m m[Hg] James Arauz MD blood pressure, systolic, right arm 124 m m[Hg] James Arauz MD respiratory rate E&M 16 /min James ritchie MD oxygen saturation, oximetry 96 % James Arauz MD weight E&M 209 [lb_av] James Arauz MD height E&M 72 [in_i] James Arauz MD ALLERGIES No Known Drug Allergies RESULTS Date Observation Value Provider Reference Range Interpretation Location LDL/HDL ratio, serum 1.5 [facility] cholesterol/HDL ratio, serum 3.8 [facility] triglyceride, serum, fasting 298 mg/dL [facility] HDL cholesterol, serum 46 mg/dL [facility] LDL cholesterol, serum 69 mg/dL [facility] cholesterol, serum 175 mg/dL [facility] alanine aminotransferase (SGPT), serum 39 1/L [facility] aspartate aminotransferase (SGOT), serum 19 1/L [facility] creatinine, serum 1.06 mg/dL [facility] potassium, serum 4.2 mmol/L [facility] sodium, serum 138 mmol/L [facility] HISTORY OF MEDICATION USE Medication Status Instructions Dates Provider Indications Com ments DAILY VALUE MULTIVITAMIN ORAL TABLET active James Arauz MD LISINOPRIL 20 MG ORAL TABLET active qd James Arauz MD CRESTOR 20 MG ORAL TABLET active qd James Arauz MD SOCIAL HISTORY Date Observation Value Provider drug use none James Arauz MD smoking status Never smoker James Arauz MD social history reviewed E&M reviewed - no changes required James Arauz MD social history reviewed E&M reviewed - no changes required James Arauz MD social history E&M Ethnicity: Ca ucasian J ob Status: Retired Rosa berkowitz has never smoked. Smoking History: Rosa berkowitz has never smoked. James Arauz MD smoking status Never smoker James Arauz MD drug use none James Arauz MD smoking status never smoker James Arauz MD social history E&M E thnicity: J ob Status: Retired James Arauz MD social history reviewed E&M reviewed James Arauz MD MENTAL STATUS Date Observation Value Provider assessment of judgme nt and insight E&M Alert and oriented to time, place and person. Mood and affect are normal. James Arauz MD FAMILY HISTORY Family Member Condition First Degree Blood Relative No Known Fam ade History INSURANCE PROVIDERS Payer name Policy type / Coverage type [place] [employer] ID [facility] [id number] TREATMENT PLAN Date Name Performer Cardiology: B P today: 132/82 P rior BP: 124/70 (08/08/2014) James Arauz MD Follow-up faxed 0826: H is updated medication list for this problem includes: Crestor 20 Mg Tabs (Rosuvastatin calcium) ..... Qd Orders: C OMPREHENSIVE METABOLIC PANEL W/EGFR ([id number]) James Arauz MD Follow-up faxed 0826:BP 124/70 His updated medication list for this problem includes: Lisinopril 20 Mg Tabs (Lisinopril) ..... Qd Orders: C OMPREHENSIVE METABOLIC PANEL W/EGFR ([id number]) James Arauz MD Date Name LIPID PANEL COMPREHENSIVE METABO LIC PANEL W/EGFR HEMOGLOBIN A1c LIPID PANEL COMPREHENSIVE METABO LIC PANEL W/EGFR Complete Echo HISTORY OF PROCEDURES Procedure Date Procedure Name Provider Procedure Notes S tatus SNOMED-CT: 532797735 [id number] Current Medications Documented James Arauz MD completed SNOMED-CT: 29053143 Physical Exam, Performed: Pulse Exam of Foot James Arauz MD completed
--- OUTSIDE RECORDS SUMMARY | 2024-05-12 08:02 | XMS_ITS | Encounter Summary ---
Author Organization [facility] Address [address] [place] [address] Phone Care Team Providers Care Registered Nurse Maternal Child Name Role Phone Khalif Davies MD Primary Care Provider [phone] Nadeem Rodriguez MD Unavailable [phone] Reason for Visit * Reason Comments Medication Refill Encounter Details Date Type Department Care Team (Late st Contact Info) Description 08/23/2023 [facility]ill [facility] [address] [place] [id number] Nadeem Rodriguez MD [address] [place] [address] Medication Refill Social History Tobacco [...] on file documented as of this encounter Miscellaneous Notes * Telephone Encounter - Patito Downey RN - 08/25/2023 8:18 AM CDT Medication(s) refilled and signed per [facility] Chronic Medication Refill Standing Order for Pediatricand Adult Patients. Requested Prescriptions Pending Prescriptions Disp Refills carbidopa-levodopa (SINEMET) 25-100 MG Tablet [Pharmacy Med Name: CARBIDOPA- LEVODOPA 25-100 TAB] 180 Tablet 2 Sig: TAKE 2 TABLETS BY MOUTH 3 TIMES DAILY. 1/2 HOUR BEFORE EATING Antiparkinson Dopaminergics and COMT Protocol Passed - 08/23/2023 12:57 AM Passed - Visit with relevant provider in the past 9 months or upcoming 90 days Recent Visits Date Type Provider Dept 02/06/23 Office Visit Nadeem Rodriguez MD [facility] Neurology [facility] Showing recent visits within past 270 days and meeting all other requirements Future Appointments No visits were found meeting these conditions. Showing future appointments within next 90 days and meeting all other requirements Passed - Blood pressure on record in past 12 months Clinician-entered: BP Readings from Last 3 Encounters: 02/06/23 140/78 08/08/22 130/70 02/05/22 140/78 Patient-entered: No data recorded documented in this encounter Plan of Treatment Not on file documented as of this encounter Visit Diagnoses Diagnosis Parkinson's disease without dyskinesia or fluctuating manifestations (HCC) documented in this encounter Care Teams Registered Nurse Maternal Child Relationship Specialty Start Date End Date Khalif Davies MD [address] [place] [id number] PCP - General Family Medicine 12/27/20 Nadeem Rodriguez MD [address] [place] [address] Consulting Physician Neurology 02/05/22 documented as of this encounter
[2024-05-27 14:58] VITALS: BMI 25.6
--- NOTE | 2024-05-27 14:58 | P.SLEEP_ITS ---
Sleep Study - Home Unattended Date of Study: 05/12/24 Ordering Provider: ASHUTOSH Arias Interpreting Provider: Pat Tabor DO Home Sleep Study Type: Watch PAT Height: 1.85 m Weight: 87.997 kg Body Mass Index: 25.6 Neck Circumference (inches): 16.25 [place]: 8 Reason for Sleep Study snoring, daytime hypersomnia Sleep History The patient is a 68-year-old male that had a sleep study ordered by the [facility] for evaluation of sleep apnea. The patient admits to excessive daytime sleepiness, loud snoring and difficulty maintaining sleep. The patient does choke or gasp at night. He does have difficulty breathing on his back. He denies morning headaches. He denies having a dry or sore mouth / throat in the morning. He denies nocturnal heartburn. He denies nocturia. He denies having difficulty falling asleep. He does have difficulty returning to sleep if he wakes up throughout the night. He does use hypnotics or sedatives. He denies feeling anxious about sleep. He does feel tired or sleepy during the day. He does feel tired in the morning. He does have the urge to fall asleep during the day. He denies feeling drowsy while driving. He denies sleep paralysis, cataplexy and hypnagogic/ hypnopompic hallucinations. He denies clenching or grinding his teeth. He denies having a restless feeling in his legs. He goes to bed at 9:00 p.m. every night. It takes him 15 minutes to fall asleep. He gets 5-1/2 hours of sleep on work days and 6-1/2 hours of sleep on his days off. His sleep is somewhat restorative on his days off. He does take it planned naps in the afternoon that is less than 1 hour. The nap is restorative. He denies dream enactment behavior. He denies sleep walking. He consumes 1-2 caffeinated beverages per day. He denies tobacco and alcohol us e. He exercises 1-2 nights per week. [facility] Past Medical History Medical History Varicose veins of bilateral lower extremities with pain Kerato[place] CODY (obstructive sleep apnea) COPD (chronic obstructive pulmonary disease) Hyperlipidemia Hypertension Surgical History Surgical History Hx of inguinal hernia surgery 2017 Family History Family History Father Acute myocardial infarction Cerebrovascular accident Mother CHF (congestive heart failure) Social History Social History Smoking status: Never smoker Alcohol intake: former Substance use: never Substance use type: does not use Do You Feel Safe in your Home?: Yes Lack of Transportation: No Lack of Food: Never True Current Housing: I Have Housing Concerned About Future Housing: No Difficulty Paying Gas/Electric Bills: No Difficulty Paying for Meds: No Currently Unemployed: No Education: High School Diploma/GED Difficulty w/ Childcare or Family Care: No Living arrangements: other Additional living arrangements comments: . Lives with . Has 3 Children. Occupation/Education: retired Gender identity (if verbalized by the patient): Male Spiritual care concerns: No Medications Home Medications ?Medication ?Instructions ?Recorded ?Confirmed ?Type aspirin 81 mg tablet,delayed 81 mg PO .every other day 01/06/23 04/23/24 History release simvastatin 20 mg tablet See Rx Instructions .Route 07/28/23 04/23/24 Rx .COMPLEX #30 tabs carbidopa 25 mg-levodopa 100 mg 2 tablet PO TID 11/18/23 04/23/24 History tablet tobramycin 0.3 %-dexamethasone 1 drp EACH EYE Q4H #5 mL 11/18/23 04/23/24 Rx 0.05 % eye drops,suspension finasteride 5 mg tablet 5 mg PO DAILY #90 tabs 01/14/24 04/23/24 Rx tamsulosin 0.4 mg capsule (Flomax) 0.4 mg PO DAILY #90 caps 01/14/24 04/23/24 Rx albuterol sulfate 90 mcg/actuation 1 - 2 inh inhalation Q4-6H PRN 04/23/24 04/23/24 Rx breath activated powder inhaler shortness of breath or wheezing #1 (ProAir RespiClick) ea lisinopril 30 mg tablet See Rx Instructions .Route 05/19/24 Rx .COMPLEX #90 tabs Sleep Procedure The sleep study was completed using flatevPAT a technically adequate device with seven channels: peripheral arterial tone, actigraphy, body position, snore, respiratory movement, pulse oximetry, sleep staging, and heart rate. Prior to using the device, the patient received verbal and written instructions for its application and was provided with the help desk phone number for additional tele phonic instruction with 24-hour availability of qualified personnel to answer questions. The study was scored using CMS guidelines. Sleep Architecture The total recording time is 8 hrs, 28 min. The total sleep time is 8 hrs, 0 min. Sleep latency is 15 minutes. REM latency is 55 minutes. The patient had 2 episodes of waking. Sleep architecture shows 12.3% deep sleep, 59.0% light sleep, and (as % Total Sleep Time) showed NREM (Light 59.0%; Deep 12.3%), and a 28.7% stage REM. The patient spent 73.6% of total sleep time in the supine position. Sleep efficiency was 94.49. Respiratory Analysis The overall AHI (pAHI 4%:) is 6.7. The central AHI is 1.8. The AHI was 7.8 in NREM and 4.0 in REM sleep. The AHI was 8.1 in Supine and 7.1 in Non-supine sleep. Percent of [place] respirations is 0.0. Oximetry Data The oxygen desaturation index (SIRI 4%:) is 6.5. The mean saturation is 93%, and the lowest saturation is 83%. Time spent with saturation < 88% is 1.6 minutes. Snoring Profile Snoring average intensity is 40 dB. The patient snored above 45 decibels for 14.0 minutes, 2.9% of sleep time. Cardiac Profile The average pulse rate is 57 beats per minutes. The lowest pulse rate is 48 bpm. The highest pulse rate reported is 85 bpm. Atrial fibrillation was not detected. Premature beats occur <0.1 per minute. Assessment and Plan Assessment and Plan (1) CODY (obstructive sleep apnea): Code(s): G47.33 - Obstructive sleep apnea (adult) (pediatric) Status: Chronic Assessment and Plan: The patient had an overall AHI of 6.7 with desaturation down to 83%. This is consistent with mild sleep apnea. Due to the patient's hypertension, he qualifies for treatment. I recommend that the patient be prescribed AutoPAP 5-15 cm H2O, CPAP mask/filters/tubing and heated humidity. A mandibular advancement device is also an acceptable treatment option. This should be used with all episodes of sleep.? Compliance should be reviewed within 31-90 days of starting therapy for usage greater than 4 hours per night greater than 70% of the nights. The patient should be asked about symptoms such as?excessive daytime sleepiness, quality of sleep, decreased nocturia, increased?mental functioning such as memory, mood, and concentration. Data The data obtained during this sleep study is adequate for interpretation. Certification This sleep study has been reviewed by a board certified sleep medicine physician.
== END 2024-05-13 09:29 | disposition home or self-care (01) ==
LOC: ANHCSM 07:57
PROVIDERS: PCP Family Medicine; Visit Provider Physician Assistant
DX: G47.33 Obstructive sleep apnea (adult) (pediatric) (principal); I10 Essential (primary) hypertension
CPT/HCPCS: 95800

== ENCOUNTER 2024-06-11 10:42 | Emergency (ER) | payer MEDICARE, BC, SELFPAY ==
[2024-06-11 10:45] VITALS: BP 153/76; PULSE 77; RESP 20; TEMP 36.9; O2SAT 99
--- NOTE | 2024-06-11 10:51 | ED.ABDPAIN ---
HPI - Abdominal Pain General Chief Complaint: Urogenital-Male Stated Complaint: right groin pain Source: patient Mode of arrival: ambulatory Limitations: no limitations History of Present Illness HPI narrative: Patient is a 68-year-old male with known history of prior kidney stones here with right groin pain for the past day. He is having some urinary urgency as well. No blood. MD elicited complaint: other ( Right groin pain) Pertinent past history: kidney stones Onset (ago): day(s) ( 1) Pain Consistency: constant Location: groin ( right) Severity: moderate Pain scale (0-10): 5 Quality: cramping and sharp Radiation: other ( genitalia) Migration to: no migration Exacerbating factors: nothing Relieving factors: nothing Context: confirms other ( patient has worsening right groin pain over the past day and history of kidney stones) Associated symptoms: denies other symptoms Related Data Home Medications ?Medication ?Instructions ?Recorded ?Confirmed ?Last Taken ?Type aspirin 81 mg tablet,delayed 81 mg PO .every other day 01/06/23 04/23/24 Unknown History release carbidopa 25 mg-levodopa 100 mg 2 tablet PO TID 11/18/23 04/23/24 Unknown History tablet Allergies Allergy/AdvReac Type Severity Reaction Status Date / Time No Known Allergies Allergy Verified 06/11/24 11:58 Review of Systems Review of Systems: All systems reviewed & are unremarkable except as noted in HPI and below Constitutional: Constitutional: Reports no additional constitutional complaints Eyes: Eyes: Reports no additional eye complaints ENT: Reports system reviewed and no additional complaints, except as documented Cardiovascular: Cardiovascular: Reports no additional cardiovascular complaints Respiratory: Respiratory: Reports no additional respiratory complaints Gastrointestinal: Gastrointestinal: Reports no additional gastrointestinal complaints Genitourinary: Genitourinary: Reports no additional male genitourinary complaints Musculoskeletal: Musculoskeletal: Reports no additional musculoskeletal complaints Integumentary/Breasts: Skin/Breast: Reports system reviewed and no additional complaints, except as docu Neurologic: Reports system reviewed and no additional complaints, except as documented Psychiatric: Psychiatric: Reports no additional psychiatric complaints Endocrine: Endocrine: Reports no additional endocrine complaints Hematologic/Lymphatic: Hematologic/Lymphatic: Reports no additional hematologic/lymphatic complaints Allergic/Immunologic: Allergic/Immunologic: Reports no additional allergic/immunologic complaints PMFSH Past Medical History Medical History Varicose veins of bilateral lower extremities with pain [place] CODY (obstructive sleep apnea) COPD (chronic obstructive pulmonary disease) Hyperlipidemia Hypertension Surgical History Surgical History Hx of inguinal hernia surgery 2017 Family History Family History Father Acute myocardial infarction Cerebrovascular accident Mother CHF (congestive heart failure) Social History Social History Smoking status: Never smoker Alcohol intake: former Substance use: never Substance use type: does not use Do You Feel Safe in your Home?: Yes Lack of Transportation: No Lack of Food: Never True Current Housing: I Have Housing Concerned About Future Housing: No Difficulty Paying Gas/Electric Bills: No Difficulty Paying for Meds: No Currently Unemployed: No Education: High School Diploma/GED Difficulty w/ Childcare or Family Care: No Living arrangements: other Additional living arrangements comments: . Lives with . Has 3 Children. Occupation/Education: retired Gender identity (if verbalized by the patient): Male Spiritual care concerns: No Exam Const: General: healthy appearing Nutritional Appearance: well nourished Orientation/consciousness: patient oriented x3 Limitations: no limitations HENMT: Head: normal to inspection Ears: external ears normal Face/Nose/Sinus: Normal external nose present Eyes: Conjunctivae: conjunctivae normal Pupils: Equal, round and reactive pupils present EOM: EOMs intact bilaterally Neck: Neck: normal visual inspection Chest: Chest palpation & inspection: normal inspection of the chest Resp: Effort & Inspection: normal respiratory effort and not labored Auscultation: clear to auscultation bilaterally and no crackles Cardio: Rate: regular rate Rhythm: regular rhythm Heart sounds: no murmurs GI: Inspection: non-distended GI Palp: Yes Soft to palpation and No Tenderness to palpation present (GI) Auscultation: normal bowel sounds : General: Yes bladder normal to palpation Back/Spine/Pelvis: Back: no CVA tenderness Skin: General skin exam: normal color Rashes: no rashes Wounds: no wounds Neuro: General: patient oriented x3 Cranial nerves: Yes Nystagmus not present Speech: normal speech Extrem: General: normal to inspection Psych: Mental Status: mental status grossly normal Affect: normal affect Attitude: cooperative Course Vital Signs Vital signs: Vital Signs Temperature 36.9 C 06/11/24 10:45 Pulse Rate 77 06/11/24 10:45 Respiratory Rate 20 06/11/24 10:45 Blood Pressure 153/76 H 06/11/24 10:45 Pulse Oximetry 99 06/11/24 10:45 Oxygen Delivery Room Air 06/11/24 10:45 Temperature 36.9 C 06/11/24 10:45 Pulse Rate 70 06/11/24 11:48 Respiratory Rate 20 06/11/24 11:48 Blood Pressure 163/91 H 06/11/24 11:48 Pulse Oximetry 97 06/11/24 11:48 Oxygen Delivery Room Air 06/11/24 11:48 MDM - Abdominal Pain MDM Narrative Medical decision making narrative: patient is a 68-year-old male with right groin pain for the past day. He has a history of kidney stones. We will do an abdominal pain workup with specifics to kidney stones. Lab Data Attestation: I reviewed the patient's lab results. 06/11/24 11:14 06/11/24 11:14 Labs: Lab Results 06/11/24 06/11/24 Range/Units 10:50 11:14 WBC 5.2 (4.8-10.8) K/mm3 RBC 5.48 (4.70-6.10) M/mm3 Hgb 16.8 H (12.4-15.3) g/dL Hct 49.3 H (37.0-46.0) % MCV 90.0 (78.0-102.0) fL MCH 30.7 (27.0-31.0) pg MCHC 34.1 (32-36) g/dL RDW 11.9 (11.6-14.4) % Plt Count 201 (150-420) K/mm3 MPV 9.9 (8.7-11.0) fl Immature Gran % (Auto) 0.2 H (0.0-0.0) % Neut % (Auto) 63.1 (50.0-70.0) % Lymph % (Auto) 27.0 (18.0-42.0) % [place] % (Auto) 8.3 (2.0-11.0) % Eos % (Auto) 1.0 (1.0-6.0) % Baso % (Auto) 0.4 (0.0-1.0) % Lymph # (Auto) 1.40 (1.10-4.50) K/mm3 [place] # (Auto) 0.43 (0.10-0.90) K/mm3 Eos # (Auto) 0.05 (0.02-0.50) K/mm3 Baso # (Auto) 0.02 (0.00-0.10) K/mm3 Abs Immat Gran (auto) 0.01 H (0.00-0.00) K/mm3 Absolute Neuts (auto) 3.27 (1.70-7.20) K/mm3 Absolute Nucleated RBC 0.00 (0.00-0.00) K/mm3 Nucleated RBC % 0.0 (0-0.0) % Sodium 138 (136-145) mmol/L Potassium 4.3 (3.5-5.1) mmol/L Chloride 100 (98-108) mmol/L Carbon Dioxide 27 (21-32) mmol/L Anion Gap 11 (4-12) mmol/L BUN 16 (7-18) mg/dL Creatinine 0.99 (0.70-1.30) mg/dL Estim Creat Clear Calc 71 ml/min Estimated GFR > 60 (59 - ) Glucose 103 H (70-99) mg/dL Calculated Osmolality 287 (285-295) mOsm/kg Calcium 9.2 (8.5-10.1) mg/dL Total Bilirubin 1.5 H (0.00-1.00) mg/dL AST 10 L (15-37) U/L ALT 12 L (16-63) U/L Alkaline Phosphatase 97 (46-116) U/L Total Protein 7.7 (6.4-8.2) g/dL Albumin 4.4 (3.4-5.0) g/dL Urine Color Light yellow (Yellow) Urine Appearance Clear (Clear) Urine pH 6.0 (5.0-8.0) Ur Specific [place] <= 1.005 L (1.010-1.020) Urine Protein Negative (Negative) Urine Glucose (UA) Negative (Negative) Urine Ketones Negative (Negative) Ur Blood (Man) 3+ H (Negative) Urine Nitrate Negative (Negative) Urine Bilirubin Negative (Negative) Urine Urobilinogen 0.2 (0.2-1.0) mg/dL Leukocyte Esterase Rfl Negative (Negative) KATIE/UL Urine RBC 3-5 H (0-2) /hpf Urine WBC None seen (0-3) /hpf Ur Squamous Epith Cells Rare (Few) /hpf Urine Bacteria None seen (None) /hpf Imaging Data Attestation: I personally reviewed and interpreted this imaging study as follows: Radiologist's impression: ITS Impressions Abdomen/Pelvis CT 06/11/24 11:15 IMPRESSION: 1. Bilateral nephrolithiasis with a partially obstructing 3 mm distal right ureteral stone with mild right hydronephrosis. CT scan of the abdomen and pelvis plain shows IMPRESSION: 1. Bilateral nephrolithiasis with a partially obstructing 3 mm distal right ureteral stone with mild right hydronephrosis. Discharge Plan Discharge Clinical Impression: Right distal ureteral calculus Patient Disposition: Home, Self-Care Condition: Stable Instructions: Ureteral Stones (ED) Additional Instructions: please follow-up with the primary doctor in the next week. Please follow-up with urology in the next week. Strain urine. Come back to the ER for worsening pain. Patient Language: [place] Prescriptions: New methylprednisolone [Medrol] 4 mg tablet 4 mg PO BID 3 Days Qty: 6 0RF hydrocodone-acetaminophen 5-325 mg tablet 1 tablet PO Q8H PRN (Reason: pain) Qty: 20 0RF Rx Instructions: 1-2 tabs per dose No Action ProAir RespiClick 90 mcg/actuation aerosol powdr breath activated 1 - 2 inh inhalation Q4-6H PRN (Reason: shortness of breath or wheezing) Qty: 1 2RF aspirin 81 mg tablet,delayed release (DR/EC) 81 mg PO .every other day carbidopa-levodopa 25-100 mg tablet 2 tablet PO TID tobramycin-dexamethasone 0.3-0.05 % drops,suspension 1 drp EACH EYE Q4H Qty: 5 0RF simvastatin 20 mg tablet See Rx Instructions .ROUTE .COMPLEX Qty: 30 11RF Dose Instruction: TAKE 1 TABLET BY MOUTH EVERY DAY Rx Instructions: TAKE 1 TABLET BY MOUTH EVERY DAY finasteride 5 mg tablet 5 mg PO DAILY Qty: 90 3RF tamsulosin [Flomax] 0.4 mg capsule 0.4 mg PO DAILY Qty: 90 3RF lisinopril 30 mg tablet See Rx Instructions .ROUTE .COMPLEX Qty: 90 2RF Dose Instruction: TAKE 1 TABLET BY MOUTH EVERY DAY Rx Instructions: TAKE 1 TABLET BY MOUTH EVERY DAY Follow-up/Referrals: UNKNOWN,DOCTOR [Non-Staff] - Time of Disposition: 11:48
[2024-06-11 11:00] VITALS: BP 158/80; PULSE 76; RESP 20; O2SAT 99
[2024-06-11 11:20] LABS: Basophils Absolute Auto 0.02 K/mm3 (0.00-0.10); Basophils Percent Auto 0.4 % (0.0-1.0); Eosinophils Absolute Auto 0.05 K/mm3 (0.02-0.50); Hematocrit 49.3 % (37.0-46.0); Hemoglobin 16.8 g/dL (12.4-15.3); Immature Granulocyte Absolute 0.01 K/mm3 (0.00-0.00); Immature Granulocyte Percent A 0.2 % (0.0-0.0); Mean Corpuscular HGB Conc 34.1 g/dL (32-36); Mean Corpuscular Hemoglobin 30.7 pg (27.0-31.0); Mean Platelet Volume 9.9 fl (8.7-11.0); Monocytes Absolute Auto 0.43 K/mm3 (0.10-0.90); Monocytes Percent Auto 8.3 % (2.0-11.0); Neutrophils Absolute Auto 3.27 K/mm3 (1.70-7.20); Neutrophils Percent Auto 63.1 % (50.0-70.0); Platelet Count Result 201 K/mm3 (150-420); Red Blood Count 5.48 M/mm3 (4.70-6.10); Red Cell Distribution Width 11.9 % (11.6-14.4); White Blood Count 5.2 K/mm3 (4.8-10.8)
[2024-06-11 11:24] LABS: Add Urine Microscopic? YES; Appearance Urine Clear (Clear); Bilirubin Urine Negative (Negative); Blood Urine 3+ (Negative); Color Urine Light Yellow (Yellow); Glucose Urine UA Negative (Negative); Ketones Urine Negative (Negative); Leukocyte Esterase Ur Negative LEU/UL (Negative); Nitrate Urine Negative (Negative); Protein Urine Negative (Negative); Specific Grav Ur <= 1.005 (1.010-1.020); Urobilinogen Urine 0.2 mg/dL (0.2-1.0)
[2024-06-11 11:30] LABS: Bacteria Urine None seen /hpf; Squamous Epithelial Cell Urine Rare /hpf (Few); WBC Urine None seen /hpf (0-3)
[2024-06-11 11:36] LABS: Alanine Aminotransferase 12 U/L (16-63); Albumin Level 4.4 g/dL (3.4-5.0); Alkaline Phosphatase 97 U/L (46-116); Anion Gap 11 mmol/L (4-12); Aspartate Amino Transferase 10 U/L (15-37); Bilirubin,Total 1.5 mg/dL (0.00-1.00); Blood Urea Nitrogen 16 mg/dL (7-18); Calcium 9.2 mg/dL (8.5-10.1); Carbon Dioxide 27 mmol/L (21-32); Chloride 100 mmol/L (98-108); Estimated CRCL calculation 71 ml/min; Estimated Glomerular Filt Rate > 60; Glucose 103 mg/dL (70-99); Osmolality Calculated 287 mOsm/kg (285-295); Potassium 4.3 mmol/L (3.5-5.1); Sodium 138 mmol/L (136-145); Total Protein 7.7 g/dL (6.4-8.2)
[2024-06-11 11:47] VITALS: O2SAT 98
[2024-06-11 11:48] VITALS: BP 163/91; PULSE 70; RESP 20; O2SAT 97
[2024-06-11] MEDS: TAMSULOSIN HCL 0.4 MG CAPSULE PO (11:57)
[2024-06-11] MEDS: predniSONE 20 MG TABLET PO (11:57)
[2024-06-11] MEDS: KETOROLAC 30 MG/ML VIAL (*BKC) IV PUSH (11:57)
== END 2024-06-11 12:06 | disposition home or self-care (01) ==
PROVIDERS: Emergency Provider Emergency Medicine; PCP Family Medicine
DX: N20.1 Calculus of ureter (principal); I10 Essential (primary) hypertension; E78.5 Hyperlipidemia, unspecified; J44.9 Chronic obstructive pulmonary disease, unspecified
CPT/HCPCS: 36415; 74176; 80053; 81001; 85025; 96374; 99284; A9270; J1885; J7512

== ENCOUNTER 2024-12-08 07:29 | Outpatient (CLI) | payer MEDICARE, BC, SELFPAY ==
--- OUTSIDE RECORDS SUMMARY | 2024-12-08 07:33 | XMS_ITS | Encounter Summary ---
Author Organization [facility] Address [address] [facility] [place] [address] Phone Care Team Providers Care Field Artillery Cannoneer Name Role Phone Khalif Davies MD Primary Care Provider [phone] Ndaeem Rodriguez MD Unavailable [phone] Reason for Visit * Reason Comments Medication Refill Encounter Details Date Type Department Care Team (Late st Contact Info) Description 04/16/2021 [facility] [address] [place] [phone] Nadeem Rodriguez MD [address] [place] [phone] Medication Refill Social History Tobacco Use Types [...] as of this encounter Plan of Treatment Upcoming Encounters Date Type Department Care Team (Late st Contact Info) Description 07/25/2025 10:00 AM CDT Office Visit [facility] Neurology [facility] [address] [place] [phone] Nadeem Rodriguez MD [address] [place] [phone] documented as of this encounter Visit Diagnoses Not on filedocumented in this encounter Care Teams Field Artillery Cannoneer Relationship Specialty Start Date End Date Khalif Davies MD [address] [place] [id number] PCP - General Family Medicine 12/27/20 Nadeem Rodriguez MD [address] [place] [phone] Consulting Physician Neurology 02/05/22 documented as of this encounter
--- OUTSIDE RECORDS SUMMARY | 2024-12-08 07:33 | XMS_ITS | Encounter Summary ---
Author Organization [facility] Address [address] [place] [address] Phone Care Team Providers Care Mold Insert Changer Name Role Phone Khalif Davies MD Primary Care Provider [phone] Nadeem Rodriguez MD Unavailable [phone] Reason for Visit * Reason Comments Medication Refill Encounter Details Date Type Department Care Team ([facility] st Contact Info) Description 08/23/20[facility] [address] [place] [phone] Nadeem Rodriguez MD [address] [place] [address] Medication Refill Social History Tobacco [...] Dept 02/06/23 Office Visit Nadeem Rodriguez MD [facility] Neurology [facility] Showing recent visits within past 270 days [...] documented in this encounter Plan of Treatment Upcoming Encounters Date Type Department Care Team (Late st Contact Info) Description 07/25/2025 10:00 AM CDT Office Visit [facility] [address] [place] [address] Nadeem Rodriguez MD [address] [place] [address] documented as of this encounter Visit Diagnoses Diagnosis 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
[2024-12-08 08:16] LABS: Cholesterol 186 mg/dL (0-200); HDL Direct 71 mg/dL; Triglycerides 84 mg/dL (<150)
== END 2024-12-08 07:30 | disposition home or self-care (01) ==
LOC: CHSLAB 07:30
PROVIDERS: PCP Family Medicine; Visit Provider Family Medicine
DX: E78.5 Hyperlipidemia, unspecified (principal)
CPT/HCPCS: 36415; 80061